=== PATIENT | female | born 1985 | race Caucasian/White ===

== ENCOUNTER 2022-12-16 14:44 | Emergency (ER) | payer BC ==
--- NOTE | 2022-12-16 15:34 | RAD REPORT ---
EXAM DESCRIPTION: CT - Ct Stroke Brain Wo Cont - 12/16/2022 3:18 pm CLINICAL HISTORY: Syncope COMPARISON: none TECHNIQUE: Computed axial tomography of the head was obtained. All CT scans are performed using dose optimization technique as appropriate and may include automated exposure control or mA/KV adjustment according to patient size. FINDINGS: An intracranial bleed is not seen . The ventricles are normal in caliber. No extra-axial fluid collection is noted. No significant hyperdensity within the brain Fluid within the sinuses/ mastoids is not seen. IMPRESSION: No acute intracranial abnormality is seen. If patient's symptoms persist MRI of the bra in would be recommended Arlin of the emergency room was notified at 3:29 p.m. December 16, 2022
--- NOTE | 2022-12-16 16:08 | RAD REPORT ---
EXAM DESCRIPTION: MRI - Brain Wo Cont - 12/16/2022 3:58 pm CLINICAL HISTORY: Confusion/dizziness COMPARISON: Head CT December 16, 2022 TECHNIQUE: Axial, sagittal, and coronal magnetic resonance images of the brain were obtained. FINDINGS: No significant abnormal signal within the brain seen Diffusion-weighted/ADC mapping does not reveal evidence of acute infarction. The ventricles are normal caliber. An extra-axial fluid collection is not noted. Mild signal right mastoids IMPRESSION: No acute intracranial abnormality noted
--- NOTE | 2022-12-16 16:20 | RAD REPORT ---
EXAM DESCRIPTION: Yulisa Single View12/16/2022 4:06 pm CLINICAL HISTORY: Syncope COMPARISON: none FINDINGS: Left base is hazy Remainder of the lungs appear clear of acute infiltrate. The heart is normal size IMPRESSION: Left base is hazy which may be secondary to overlying soft tissue or infiltrate. PA and lateral chest series recommended
[2022-12-16 16:32] LABS: Absolute Lymphocytes (CBC) 2.4 K/uL (0.7-4.9); Hematocrit 43.1 % (36.0-45.0); Lymphocytes % 28.1 % (15.3-44.8); MCV 83.5 fL (80-100); MPV 7.8 fL (7.6-11.3); RBC Red Blood Cell Count 5.16 M/uL (3.86-4.86)
[2022-12-16 16:36] LABS: Protime INR 1.05
[2022-12-16 16:51] LABS: Magnesium 2.5 mg/dL (1.6-2.4); Potassium 3.8 mmol/L (3.5-5.1); Troponin High Sensitivity 7.9 pg/mL (<58.9)
--- NOTE | 2022-12-16 17:19 | RAD REPORT ---
EXAM DESCRIPTION: Yulisa Mo And Alon (2 Views)12/16/2022 5:04 pm CLINICAL HISTORY: Chest pain COMPARISON: X-ray same date FINDINGS: Left base is clear. The lungs appear clear of acute infiltrate. The heart is normal size IMPRESSION: No acute abnormalities displayed
--- NOTE | 2022-12-16 17:26 | EDPHYS ---
Physician Documentation [facility] Name: Chantell Loera Age: 37 yrs Sex: Female : 1985 Arrival Date: 12/16/2022 Time: 14:47 Bed 6 Private MD: ED Physician Sander Arzola HPI: 12/16 17:06 This 37 yrs old Female presents to ER via Ambulatory with complaints of Doesn't Feel kb Right. 17:06 The patient's problem is reported as weakness, in the right lower extremity, speech kb changes. Onset: The symptoms/episode began/occurred at 13:00. Duration: This was a single incident. Context: symptoms became apparent on December 16, 2022, at 13:00. occurred on a street or driveway, occurred while the patient was driving. The symptoms are alleviated by nothing. The symptoms are aggravated by nothing. Associated signs and symptoms: Pertinent positives: seizure, weakness, Speech was not making sense. Severity of symptoms: At their worst the symptoms were moderate in the emergency department the symptoms have improved. Patient's baseline: Neuro: alert and fully oriented, Motor: no deficits, Ambulation: walks without assistance, Speech: normal, The patient has a previous history of seizure disorder. The patient has not experienced similar symptoms in the past. The patient has not recently seen a physician. Patient is a 37-year-old female with a history of seizures who presents for weakness, near syncope, abnormal facial movements, changes in speech that started at 1 PM. Patient's last seizure was 20+ years ago. Historical: - Allergies: 15:00 PENICILLINS; hb 15:00 Sulfa (Sulfonamide Antibiotics); hb - Home Meds: 15:00 None [Active]; hb - PMHx: 15:00 seizures; hb - PSHx: 15:00 Tonsillectomy; Adenoid excision; Cholecystectomy; hb - Immunization history:: Adult Immunizations up to date. ROS: 17:05 Constitutional: Negative for fever, chills, and weight loss. kb 17:05 Neuro: Positive for seizure activity, speech changes, near syncope, weakness. 17:05 All other systems are negative. Exam: 16:14 ECG was reviewed by the Attending Physician. rn 17:05 Constitutional: This is a well developed, well nourished patient who is awake, alert, kb and in no acute distress. Head/Face: Normocephalic, atraumatic. Eyes: Pupils equal round and reactive to light, extra-ocular motions intact. Lids and lashes normal. Conjunctiva and sclera are non-icteric and not injected. Cornea within normal limits. Periorbital areas with no swelling, redness, or edema. ENT: Moist Mucous membranes Cardiovascular: Regular rate and rhythm with a normal S1 and S2. No gallops, murmurs, or rubs. No pulse deficits. Respiratory: Respirations even and unlabored. No increased work of breathing. Talking in full sentences Abdomen/GI: Soft, non-tender. No distention Skin: Warm, dry with normal turgor. Normal color. MS/ Extremity: Pulses equal, no cyanosis. Neurovascular intact. Full, normal range of motion. Neuro: Awake and alert, GCS 15, oriented to person, place, time, and situation. Moves all extremities. Normal gait. Psych: Awake, alert, with orientation to person, place and time. Behavior, mood, and affect are within normal limits. Vital Signs: 14:56 BP 137 / 95; Pulse 77; Resp 16; Temp 97.8; Pulse Ox 100% on R/A; Weight 80.29 kg; hb Height 5 ft. 2 in. ; Pain 0/10; 16:12 BP 121 / 74; Pulse 72; Resp 16; Pulse Ox 99% on R/A; Pain 0/10; sg5 16:20 BP 109 / 69; Pulse 75; Resp 18; Pulse Ox 99% on R/A; Pain 0/10; ld1 17:11 BP 105 / 65; Pulse 83; Resp 18; Pulse Ox 98% on R/A; ld1 14:56 Body Mass Index 32.37 (80.29 kg, 157.48 cm) hb 14:56 Pain Scale: Adult hb 16:12 Pain Scale: Adult sg5 16:20 Pain Scale: Adult ld1 NIH Stroke Scale Scores: 17:05 NIHSS Score: 0 kb MDM: 14:59 Patient medically screened. kb 15:30 Data reviewed: vital signs, nurses notes. Discussion of test interpretation with michelle radiology: I had a discussion with radiology regarding a test interpretation. Discussed with Dr Will, head CT negative. 15:53 ED course: Evaluated patient in CT after report from Arlin, CONDENSER TUBE TENDER. Patient reports rn episodes of "slow thought", but no focal weakness/numbness. Mother reports receiving texts that didn't make sense, a combination of letters and numbers that didn't make sense. Mother reports that patient also described 3 episodes where she had uncontrollable movement of head to right with contractions/twitching. Pt with hx of seizures in past and off meds for 15-20 years now. Patient feels much better and has NIH 0 per my exam. No trauma. Is 37 years old and no reason for CVA and normal exam other than subjective "slow thought". Possible simple partial seizures. CT head neg, and obtaining MRI to rule out CVA. . 15:58 ED course: [place] Dr Saavedra, [place] for consult.. kb 16:10 ED course: MRI negative. kb 12/16 15:04 Order name: EKG; Complete Time: 15:05 kb 12/16 15:04 Order name: O2 Per Protocol; Complete Time: 15:10 kb 12/16 15:04 Order name: O2 Sat Monitoring; Complete Time: 15:10 kb 12/16 15:04 Order name: NPO; Complete Time: 15:10 kb 12/16 15:04 Order name: CT Stroke Brain w/o Contrast; Complete Time: 15:38 kb 12/16 15:09 Order name: MRI - Brain Wo Cont; Complete Time: 16:09 kb 12/16 15:04 Order name: EKG - Nurse/Tech; Complete Time: 16:14 kb 12/16 15:04 Order name: Accucheck; Complete Time: 16:20 kb 12/16 15:04 Order name: Cardiac monitoring; Complete Time: 16:20 kb 12/16 15:04 Order name: IV Saline Lock; Complete Time: 16:20 kb 12/16 15:04 Order name: Labs collected and sent; Complete Time: 16:20 kb 12/16 15:04 Order name: Stroke Swallow Screen; Complete Time: 16:20 kb 12/16 15:04 Order name: Stroke CXR 1 View; Complete Time: 16:22 kb 12/16 15:04 Order name: CBC with Diff; Complete Time: 16:37 kb 12/16 15:04 Order name: Protime (+inr); Complete Time: 16:37 kb 12/16 15:04 Order name: Ptt, Activated; Complete Time: 16:37 kb 12/16 15:04 Order name: Magnesium; Complete Time: 16:55 kb 12/16 15:04 Order name: Basic Metabolic Panel; Complete Time: 16:55 kb 12/16 15:04 Order name: High Sensitivity Troponin; Complete Time: 16:55 kb 12/16 16:29 Order name: Glucose, Ancillary Testing; Complete Time: 16:37 EDMS 12/16 16:22 Order name: Chest Pa And Lat (2 Views) XRAY; Complete Time: 17:23 kb EC:14 Rate is 74 beats/min. Rhythm is regular. QRS [place] is Normal. MS interval is normal. QRS rn interval is normal. QT interval is normal. No Q waves. T waves are Normal. No ST changes noted. Clinical impression: Normal ECG. Interpreted by me. Reviewed by me. Administered Medications: No medications were administered Disposition Summary: 12/16/22 17:25 Discharge Ordered Location: Home kb Condition: Stable kb Diagnosis - Other seizures - partial kb Followup: kb - With: Emergency Department - When: As needed - Reason: Worsening of condition Followup: kb - With: Private Physician - When: 2 - 3 days - Reason: Recheck today's complaints, Continuance of care, Re-evaluation by your physician Discharge Instructions: - Discharge Summary Sheet kb - Seizure, Adult, [id number] Forms: - Medication Reconciliation Form kb - Thank You Letter kb - Antibiotic Education kb - Prescription Opioid Use NIH Stroke Scale - NIH Stroke Score Date: 12/16/2022 Time: 17:05 Total Score = 0 10. Dysarthria (speech clarity - read or repeat words) - 0(Normal) 11. Extinction and Inattention (visual/tactile/auditory/spatial/personal) - 0(No abnormality) 1a. Level of Consciousness (LOC) - 0(Alert) 1b. Level of Consciousness (LOC) (Month \\T\\ Age) - 0(Both) 1c. LOC Commands (Open \\T\\ Closes Eyes/Fire Investigation Manager) - 0(Both) 2. Best Gaze (Lateral Gaze Paresis) - 0(Normal) 3. Visual Field Loss - 0(No visual loss) 4. Facial Palsy - 0(Normal) 5a. Left Arm: Motor (10-second hold) - 0(No drift) 5b. Right Arm: Motor (10-second hold) - 0(No drift) 6a. Left Leg: Motor (5-second hold - always test supine) - 0(No drift) 6b. Right Leg: Motor (5-second hold - always test supine) - 0(No drift) 7. Limb Ataxia (finger/nose \\T\\ heel/quiñonez - test with eyes open) - 0(Absent) 8. Sensory Loss (pinprick arms/legs/face) - 0(Normal) 9. Best Language: Aphasia (description/naming/reading) - 0(No aphasia) Initials: kb Signatures: Dispatcher [employer] EDArlin Marte, SENIOR MARKETING ENGINEER-C SENIOR MARKETING ENGINEER-Ckb Sander Arzola MD MD rn Baxter, Heather, RN RN hb
--- NOTE | 2022-12-16 17:26 | ER ---
Nurse's Notes [facility] Name: Chantell Loera Age: 37 yrs Sex: Female : 1985 Arrival Date: 12/16/2022 Time: 14:47 Bed 6 Private MD: Diagnosis: Other seizures-partial Presentation: 12/16 14:56 Chief complaint: Patient states: "I feel like my brain and my body aren't the same, hb like it is not connected." Reports near syncopal episode while sitting in car 30 minutes ago. Hx of seizures and anxiety. VAN negative. Coronavirus screen: At this time, the client does not indicate any symptoms associated with coronavirus-19. Ebola Screen: No symptoms or risks identified at this time. Initial Sepsis Screen: Does the patient meet any 2 criteria? No. Patient's initial sepsis screen is negative. Does the patient have a suspected source of infection? No. Patient's initial sepsis screen is negative. Risk Assessment: Do you want to hurt yourself or someone else? Patient reports no desire to harm self or others. Onset of symptoms was December 16, 2022. 14:56 Method Of Arrival: Ambulatory 14:56 Acuity: AYAH 3 hb Historical: - Allergies: 15:00 PENICILLINS; hb 15:00 Sulfa (Sulfonamide Antibiotics); hb - Home Meds: 15:00 None [Active]; hb - PMHx: 15:00 seizures; hb - PSHx: 15:00 Tonsillectomy; Adenoid excision; Cholecystectomy; hb - Immunization history:: Adult Immunizations up to date. Screenin:14 [facility] ED Fall Risk Assessment (Adult) History of falling in the last 3 months, sg5 including since admission No falls in past 3 months (0 pts). Abuse screen: Denies threats or abuse. Nutritional screening: No deficits noted. Tuberculosis screening: No symptoms or risk factors identified. Assessment: 15:14 General: Appears comfortable, Behavior is calm, cooperative, appropriate for age, sg5 Reports fatigue for 0-12 hours. Pain: Denies pain. Neuro: Level of Consciousness is awake, alert, obeys commands, Oriented to person, place, time, situation, Appropriate for age Bridal Sales Consultant are equal bilaterally Moves all extremities. Weakness in right leg(s) Gait is steady, Speech is normal, Facial symmetry appears normal, Pupils are PERRLA, Intact Reports Patient describes head feels cloudy, having the feeling of wanting to pass out.. Cardiovascular: No deficits noted. Denies chest pain, shortness of breath, Heart tones S1 S2 present Capillary refill < 3 seconds Rhythm is regular. Respiratory: No deficits noted. Airway is patent Breath sounds are clear bilaterally. GI: No deficits noted. No signs and/or symptoms were reported involving the gastrointestinal system. Bowel sounds present X 4 quads. : No deficits noted. No signs and/or symptoms were reported regarding the genitourinary system. EENT: No deficits noted. No signs and/or symptoms were reported regarding the EENT system. Derm: No deficits noted. No signs and/or symptoms reported regarding the dermatologic system. Musculoskeletal: No deficits noted. No signs and/or symptoms reported regarding the musculoskeletal system. 16:20 Reassessment: Patient appears in no apparent distress at this time. Patient and/or ld1 family updated on plan of care and expected duration. Pain level reassessed. Patient is alert, oriented x 3, equal unlabored respirations, skin warm/dry/pink. Patient denies pain at this time. Patient states feeling better. Patient states symptoms have improved. Vital Signs: 14:56 BP 137 / 95; Pulse 77; Resp 16; Temp 97.8; Pulse Ox 100% on R/A; Weight 80.29 kg; hb Height 5 ft. 2 in. ; Pain 0/10; 16:12 BP 121 / 74; Pulse 72; Resp 16; Pulse Ox 99% on R/A; Pain 0/10; sg5 16:20 BP 109 / 69; Pulse 75; Resp 18; Pulse Ox 99% on R/A; Pain 0/10; ld1 17:11 BP 105 / 65; Pulse 83; Resp 18; Pulse Ox 98% on R/A; ld1 14:56 Body Mass Index 32.37 (80.29 kg, 157.48 cm) hb 14:56 Pain Scale: Adult hb 16:12 Pain Scale: Adult sg5 16:20 Pain Scale: Adult ld1 NIH Stroke Scale Scores: 17:05 NIHSS Score: 0 kb ED Course: 14:47 Patient arrived in ED. rg4 14:58 Arlin Hollingsworth FNP-C is PSYCHIATRICP. kb 14:58 Sander Arzola MD is Attending Physician. kb 15:00 Triage completed. hb 15:01 Arm band placed on. hb 15:14 Ny Hart, RN is Primary Nurse. sg5 15:14 Patient has correct armband on for positive identification. Bed in low position. Call sg5 light in reach. Side rails up X2. Adult w/ patient. 15:14 Valuables Left with patient. sg5 15:20 CT Stroke Brain w/o Contrast In Process Unspecified. EDMS 15:47 MRI - Brain Wo Cont In Process Unspecified. EDMS 16:07 Stroke CXR 1 View In Process Unspecified. EDMS 17:06 Chest Pa And Lat (2 Views) XRAY In Process Unspecified. EDMS Administered Medications: No medications were administered Medication: 15:14 VIS not applicable for this client. sg5 Outcome: 17:25 Discharge ordered by . michelle NIH Stroke Scale - NIH Stroke Score Date: 12/16/2022 Time: 17:05 Total Score = 0 10. Dysarthria (speech clarity - read or repeat words) - 0(Normal) 11. Extinction and Inattention (visual/tactile/auditory/spatial/personal) - 0(No abnormality) 1a. Level of Consciousness (LOC) - 0(Alert) 1b. Level of Consciousness (LOC) (Month \\T\\ Age) - 0(Both) 1c. LOC Commands (Open \\T\\ Closes Eyes/Handle Lathe Operator) - 0(Both) 2. Best Gaze (Lateral Gaze Paresis) - 0(Normal) 3. Visual Field Loss - 0(No visual loss) 4. Facial Palsy - 0(Normal) 5a. Left Arm: Motor (10-second hold) - 0(No drift) 5b. Right Arm: Motor (10-second hold) - 0(No drift) 6a. Left Leg: Motor (5-second hold - always test supine) - 0(No drift) 6b. Right Leg: Motor (5-second hold - always test supine) - 0(No drift) 7. Limb Ataxia (finger/nose \\T\\ heel/quiñonez - test with eyes open) - 0(Absent) 8. Sensory Loss (pinprick arms/legs/face) - 0(Normal) 9. Best Language: Aphasia (description/naming/reading) - 0(No aphasia) Initials: michelle Signatures: Dispatcher [employer] EDMS Arlin Hollingsworth, CAMPUS ADMINISTRATOR-C CAMPUS ADMINISTRATOR-Ckb Leti Friedman, RN RN hb Argelia Ko rg4 Marcy Vyas, RN RN ld1 Ny Hart, RN RN sg5
[2022-12-17 03:51] VITALS: O2SAT 100
[2022-12-17 03:54] VITALS: TEMP 97.4
[2022-12-17 03:58] VITALS: BP 121/83
== END 2022-12-16 17:46 | disposition home or self-care (01) ==
LOC: ER 14:44
DX: G40.109 Localization-related (focal) (partial) symptomatic epilepsy and epileptic syndromes with simple partial seizures, not intractable, without status epilepticus (principal); Z88.0 Allergy status to penicillin; Z88.2 Allergy status to sulfonamides
CPT/HCPCS: 36415; 70450; 70551; 71045; 71046; 80048; 82947; 83735; 84484; 85025; 85610; 85730; 99284